=== PATIENT | female | born 1960 | race Caucasian/White ===

== ENCOUNTER 2020-02-06 08:21 | Emergency (ER) | payer BC ==
[2020-02-06] MEDS ORDERED: Sodium Chloride 0.9% 10 ML Syringe FLUSH PRN ×2 (09:35→09:45)
[2020-02-06] MEDS ORDERED: Ondansetron 4 MG/2 ML SDV IVPUSH ONE (09:35)
[2020-02-06] MEDS ORDERED: fentaNYL 100 MCG/2 ML SDV IVPUSH ONE (09:37)
[2020-02-06] MEDS ORDERED: Iopamidol 612 MG/ML 100 ML Bottle IV PRN (09:45)
[2020-02-06] MEDS ORDERED: Lactated Ringers 1,000 ML IV SCH (09:45)
--- NOTE | 2020-02-06 09:55 | EDM.PDOC ---
ED HPI GENERAL MEDICAL PROBLEM - General Chief Complaint: Abdominal Pain Stated Complaint: L LOWER ABD PAIN Time Seen by Provider: 02/06/20 09:31 Source of Information: Reports: Patient, Old Records, RN Notes Reviewed History Limitations: Reports: No Limitations - History of Present Illness INITIAL COMMENTS - FREE TEXT/NARRATIVE: 59-year-old female presents emergency department a complaint of abdominal pain, she states has had pain for about 2 days it is progressively getting worse. She was evaluated in the clinic yesterday urinalysis at that time did show positive nitrates moderate leukocyte esterase greater than 100 WBCs was started on antibiotic of Cipro.. She states the pain has gotten significantly worse over the last 12 hours. No fevers she does feel nauseated no shortness of breath or chest pain Left Lower Abdomen Pain Score (Numeric/FACES): 10 - Related Data Allergies Allergy/AdvReac Type Severity Reaction Status Date / Time ibuprofen Allergy Shortness Verified 02/06/20 09:09 of Breath *eucalyptus Allergy Severe Airway Uncoded 02/06/20 09:09 Tightness Home Meds: Home Meds Albuterol Sulfate [Proair Hfa] 2 puff IH Q4H PRN 02/28/13 [History] Ciprofloxacin [Ciprofloxacin HCl] 500 mg PO BID 02/06/20 [History] Past Medical History HEENT History: Reports: Impaired Vision, Other (See Below) Other HEENT History: top and bottom dentures Respiratory History: Reports: Asthma, Other (See Below) Other Respiratory History: emphysema 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: Musculoskeletal History: Reports: Back Pain, Chronic, Fracture, Other (See Below) Other Musculoskeletal History: left foot fx Dermatologic History: Reports: Other (See Below) Other Dermatologic History: dry skin - Infectious Disease History Infectious Disease History: Reports: Chicken Pox - Past Surgical History Female Surgical History: Reports: Tubal Ligation Social & Family History - Tobacco Use Smoking Status *Q: Light Tobacco Smoker Years of Tobacco use: 35 Packs/Tins Daily: 0.5 - Caffeine Use Caffeine Use: Reports: Coffee, Soda - Alcohol Use Days Per Week of Alcohol Use: 7 Number of Drinks Per Day: 2 Total Drinks Per Week: 14 - Recreational Drug Use Recreational Drug Use: No ED ROS GENERAL - Review of Systems Review Of Systems: See Below Constitutional: Reports: No Symptoms. Denies: Fever HEENT: Reports: No Symptoms Respiratory: Reports: No Symptoms Cardiovascular: Reports: No Symptoms GI/Abdominal: Reports: Abdominal Pain, Flatus, Nausea. Denies: Constipation, Diarrhea, Vomiting : Reports: Dysuria Musculoskeletal: Reports: No Symptoms Skin: Reports: No Symptoms ED EXAM, GI/ABD - Physical Exam Exam: See Below Exam Limited By: No Limitations General Appearance: Alert, Mild Distress Respiratory/Chest: No Respiratory Distress, Lungs Clear, Normal Breath Sounds, No Accessory Muscle Use, Chest Non-Tender Cardiovascular: Normal Peripheral Pulses, Regular Rate, Rhythm, No Murmur GI/Abdominal Exam: Soft, Tender (Left lower quadrant) Course - Vital Signs Last Recorded V/S: Last Vital Signs Temp 97.2 F 02/06/20 09:06 Pulse 95 02/06/20 10:36 Resp 14 02/06/20 10:36 BP 132/78 02/06/20 10:36 Pulse Ox 97 02/06/20 10:36 - Orders/Labs/Meds Orders: Active Orders 24 hr Category Date Time Status Peripheral IV Care [RC] . DIRECTED Care 02/06/20 09:35 Active Lactated Ringers [Ringers, Lactated] 1,000 ml Med 02/06/20 09:45 Active IV ASDIRECTED Sodium Chloride 0.9% [Saline Flush] Med 02/06/20 09:35 Active 10 ml FLUSH ASDIRECTED PRN Sodium Chloride 0.9% [Saline Flush] Med 02/06/20 09:45 Active 10 ml FLUSH ONETIME PRN ED Antiemetic Medication Reflex [OM.PC] Click to Edit Oth 02/06/20 09:35 Ordered ED Pain Medications Reflex [OM.PC] Click to Edit Oth 02/06/20 09:35 Ordered Peripheral IV Insertion Adult [OM.PC] Urgent Oth 02/06/20 09:35 Ordered Medication Orders Lactated Ringer's (Ringers, Lactated) 1,000 mls @ 999 mls/hr IV ASDIRECTED NORMA Last Admin: 02/06/20 09:44 Dose: 999 mls/hr Documented by: MICHELLEBSTA Sodium Chloride (Saline Flush) 10 ml FLUSH ASDIRECTED PRN PRN Reason: Keep Vein Open Last Admin: 02/06/20 09:44 Dose: 10 ml Documented by: MICHELLEBSTA Sodium Chloride (Saline Flush) 10 ml FLUSH ONETIME PRN PRN Reason: PER RADIOLOGY PROTOCOL Last Admin: 02/06/20 10:17 Dose: 10 ml Documented by: LAURA Labs: Laboratory Tests 02/06/20 02/06/20 02/06/20 Range/Units 09:24 09:24 09:24 WBC 15.1 H (4.5-11.0) K/uL RBC 4.06 (3.30-5.50) M/uL Hgb 15.1 H (12.0-15.0) g/dL Hct 43.4 (36.0-48.0) % MCV 107 H (80-98) fL MCH 37 H (27-31) pg MCHC 35 (32-36) % Plt Count 212 (150-400) K/uL Neut % (Auto) 87 H (36-66) % Lymph % (Auto) 5 L (24-44) % [place] % (Auto) 7 H (2-6) % Eos % (Auto) 0 L (2-4) % Baso % (Auto) 0 (0-1) % Sodium 134 L (140-148) mmol/L Potassium 3.6 (3.6-5.2) mmol/L Chloride 98 L (100-108) mmol/L Carbon Dioxide 27 (21-32) mmol/L Anion Gap 12.6 (5.0-14.0) mmol/L BUN 6 L (7-18) mg/dL Creatinine 0.9 (0.6-1.0) mg/dL Est Cr Clr Drug Dosing 51.41 mL/min Estimated GFR (MDRD) > 60 (>60) Glucose 114 H (74-106) mg/dL Lactic Acid 1.4 (0.4-2.0) mmol/L Calcium 9.3 (8.5-10.1) mg/dL Total Bilirubin 1.3 H D (0.2-1.0) mg/dL AST 67 H (15-37) U/L ALT 51 (12-78) U/L Alkaline Phosphatase 131 H (46-116) U/L Troponin I < 0.017 (0.000-0.056) ng/mL Total Protein 7.5 (6.4-8.2) g/dL Albumin 3.6 (3.4-5.0) g/dL Globulin 3.9 H (2.3-3.5) g/dL Albumin/Globulin Ratio 0.9 L (1.2-2.2) Lipase 70 L (73-393) U/L Urine Color (YELLOW) Urine Appearance (CLEAR) Urine pH (5.0-8.0) Ur Specific [place] (1.008-1.030) Urine Protein (NEGATIVE) mg/dL Urine Glucose (UA) (NEGATIVE) mg/dL Urine Ketones (NEGATIVE) mg/dL Urine Occult Blood (NEGATIVE) Urine Nitrite (NEGATIVE) Urine Bilirubin (NEGATIVE) Urine Urobilinogen (0.2-1.0) EU/dL Ur Leukocyte Esterase (NEGATIVE) Urine RBC (0-5) Urine WBC (0-5) Ur Epithelial Cells Amorphous Sediment Urine Bacteria Urine Mucus 02/06/20 Range/Units 10:10 WBC (4.5-11.0) K/uL RBC (3.30-5.50) M/uL Hgb (12.0-15.0) g/dL Hct (36.0-48.0) % MCV (80-98) fL MCH (27-31) pg MCHC (32-36) % Plt Count (150-400) K/uL Neut % (Auto) (36-66) % Lymph % (Auto) (24-44) % [place] % (Auto) (2-6) % Eos % (Auto) (2-4) % Baso % (Auto) (0-1) % Sodium (140-148) mmol/L Potassium (3.6-5.2) mmol/L Chloride (100-108) mmol/L Carbon Dioxide (21-32) mmol/L Anion Gap (5.0-14.0) mmol/L BUN (7-18) mg/dL Creatinine (0.6-1.0) mg/dL Est Cr Clr Drug Dosing mL/min Estimated GFR (MDRD) (>60) Glucose (74-106) mg/dL Lactic Acid (0.4-2.0) mmol/L Calcium (8.5-10.1) mg/dL Total Bilirubin (0.2-1.0) mg/dL AST (15-37) U/L ALT (12-78) U/L Alkaline Phosphatase (46-116) U/L Troponin I (0.000-0.056) ng/mL Total Protein (6.4-8.2) g/dL Albumin (3.4-5.0) g/dL Globulin (2.3-3.5) g/dL Albumin/Globulin Ratio (1.2-2.2) Lipase (73-393) U/L Urine Color Yellow (YELLOW) Urine Appearance Slightly cloudy A (CLEAR) Urine pH 5.5 (5.0-8.0) Ur Specific [place] 1.010 (1.008-1.030) Urine Protein Negative (NEGATIVE) mg/dL Urine Glucose (UA) Negative (NEGATIVE) mg/dL Urine Ketones Negative (NEGATIVE) mg/dL Urine Occult Blood Trace-lysed H (NEGATIVE) Urine Nitrite Negative (NEGATIVE) Urine Bilirubin Negative (NEGATIVE) Urine Urobilinogen 0.2 (0.2-1.0) EU/dL Ur Leukocyte Esterase Trace H (NEGATIVE) Urine RBC 0-5 (0-5) Urine WBC 0-5 (0-5) Ur Epithelial Cells Few Amorphous Sediment Rare Urine Bacteria Few Urine Mucus Rare Meds: Medications Generic Name Dose Route Start Last Admin Trade Name Freq PRN Reason Stop Dose Admin Lactated Ringer's 1,000 mls @ 999 mls/hr 02/06/20 09:45 02/06/20 09:44 Ringers, Lactated IV 999 mls/hr ASDIRECTED NORMA Administration Sodium Chloride 10 ml 02/06/20 09:35 02/06/20 09:44 Saline Flush FLUSH 10 ml ASDIRECTED PRN Administration Keep Vein Open Sodium Chloride 10 ml 02/06/20 09:45 02/06/20 10:17 Saline Flush FLUSH 10 ml ONETIME PRN Administration PER RADIOLOGY PROTOCOL Discontinued Medications Generic Name Dose Route Start Last Admin Trade Name Freq PRN Reason Stop Dose Admin Fentanyl 50 mcg 02/06/20 09:37 02/06/20 09:44 Sublimaze IVPUSH 02/06/20 09:38 50 mcg ONETIME ONE Administration Sodium Chloride 70 mls @ 3 mls/sec 02/06/20 09:45 02/06/20 10:17 Normal Saline IV 02/06/20 09:46 3 mls/sec ONETIME ONE Administration Iopamidol 92 ml 02/06/20 09:45 02/06/20 10:18 Isovue-300 (61%) IV 92 ml . DIRECTED PRN Administration RADIOLOGY EXAM Ondansetron HCl 4 mg 02/06/20 09:35 02/06/20 09:47 Zofran IVPUSH 02/06/20 09:36 4 mg ONETIME ONE Administration Departure - Departure Time of Disposition: 14:42 Disposition: Home, Self-Care 01 Condition: Fair Clinical Impression: Left renal mass - Discharge Information Referrals: PCP,None [Primary Care Provider] - Forms: ED Department Discharge Additional Instructions: Continue with your antibiotics already initiated, please call to the [facility] on Monday for an appointment time for an emergency room follow- up. At which time you may need to see a specialist from urology. If your symptoms get worse please return to the emergency department for further evaluation Sepsis Event Note (ED) - Evaluation Sepsis Screening Result: No Definite Risk - Focused Exam Vital Signs: Vital Signs Temp Pulse Resp BP Pulse Ox 02/06/20 10:36 95 14 132/78 97 02/06/20 09:35 99 14 124/63 100 02/06/20 09:06 97.2 F 103 H 20 132/68 100 - My Orders Last 24 Hours: My Active Orders 02/06/20 09:35 Peripheral IV Care [RC] . DIRECTED Sodium Chloride 0.9% [Saline Flush] 10 ml FLUSH ASDIRECTED PRN ED Antiemetic Medication Reflex [OM.PC] Click to Edit ED Pain Medications Reflex [OM.PC] Click to Edit Peripheral IV Insertion Adult [OM.PC] Urgent 02/06/20 09:45 Lactated Ringers [Ringers, Lactated] 1,000 ml IV ASDIRECTED Sodium Chloride 0.9% [Saline Flush] 10 ml FLUSH ONETIME PRN - Assessment/Plan Last 24 Hours: My Active Orders 02/06/20 09:35 Peripheral IV Care [RC] . DIRECTED Sodium Chloride 0.9% [Saline Flush] 10 ml FLUSH ASDIRECTED PRN ED Antiemetic Medication Reflex [OM.PC] Click to Edit ED Pain Medications Reflex [OM.PC] Click to Edit Peripheral IV Insertion Adult [OM.PC] Urgent 02/06/20 09:45 Lactated Ringers [Ringers, Lactated] 1,000 ml IV ASDIRECTED Sodium Chloride 0.9% [Saline Flush] 10 ml FLUSH ONETIME PRN Plan: Assessment Acuity = acute Site and laterality = mass left superior pole kidney Etiology = unknown Manifestations = left flank pain Location of injury = Home Lab values = WBC elevated 15.1 consistent leukocytosis total bilirubin up 1.3 consistent hyperbilirubinemia troponin is negative urinalysis negative CT scan describes a mass above ultrasound confirms however unclear if it is solid versus abscess versus solid mass with infectious process around Plan Call discussed case with Dr. Guzman interventional radiologist [place] [id number] recommend continue with antibiotic therapy and then follow-up with primary care with possible referral to urology for further evaluation of the mass, also consider MRI for better image study of the mass. A consult to follow-up with primary care has been in place for next week This note was dictated using [employer] voice recognition software please call with any questions on syntax or grammar.
[2020-02-06 10:36] VITALS: BP 132/78; PULSE 95
--- NOTE | 2020-02-06 10:46 | CT ---
Abdomen Pelvis w Cont CLINICAL HISTORY: Left lower quadrant pain COMPARISON: None. TECHNIQUE: Axial tomographic images are obtained from the dome of the diaphragm to the pubic symphysis with IV contrast enhancement. No oral contrast was used. Auto dosage reduction and iterative reconstruction techniques employed. FINDINGS: The lung bases are clear. The liver shows no mass or biliary dilatation. The gallbladder is free of filling defects. There is a fold in the midportion. The spleen has a normal size and shape. The pancreas shows no mass or inflammatory change. The adrenal glands appear normal bilaterally. There is a 2.0 x 3.0 x 1.8 cm complex low attenuation mass off the upper pole of the left kidney. There is some surrounding perinephric stranding. There is a 2 x 3 mm left mid pole nonobstructing renal calculus. The ureters have a normal course and contour. The bladder is relatively empty. The aorta there is atheromatous plaque in the aorta without aneurysm.. There is no suspicious retroperitoneal adenopathy. The small intestinal configuration is nonacute. There is gas and feces throughout the colon. The appendix is not definitively identified. Abdominal pelvic fat planes and low pelvic side belle are well demarcated. Uterus is midline. No adnexal masses or abnormal fluid collections are seen. IMPRESSION: 2.0 x 3.0 x 1.8 cm complex low-attenuation mass off the upper pole of the left kidney with surrounding inflammatory changes. This may be a complex cyst possibly with related infection. Renal ultrasound should be considered to better characterize the lesion. No evidence of diverticulitis or left lower quadrant inflammation
--- NOTE | 2020-02-06 13:33 | US ---
Abdomen Ltd CLINICAL HISTORY: Left renal abnormality, pain FINDINGS: Left kidney measures 10.5 x 4.8 x 4.6 cm. There is a 1.9 x 1.6 x 2.0 cm solid appearing mass off the upper pole of the left kidney there is no distal shadowing or significant through transmission There is no hydronephrosis. Stone seen on the current CT is not identified. IMPRESSION: 1.9 x 1.6 x 2.0 cm mass off the upper pole of the left kidney. This may represent solid mass. There is some stranding in the perinephric fat on CT. This may be of infectious etiology possibly phlegmon. Abscess is felt less likely due to lack of through transmission
== END 2020-02-06 15:09 | disposition home or self-care (01) ==
LOC: JP.ED 08:21
DX: N28.89 Other specified disorders of kidney and ureter (principal); F17.210 Nicotine dependence, cigarettes, uncomplicated; J43.9 Emphysema, unspecified; J45.909 Unspecified asthma, uncomplicated; Z88.3 Allergy status to other anti-infective agents
CPT/HCPCS: 36415; 74177; 76705; 80053; 81001; 83605; 83690; 84484; 85025; 96361; 96374; 96375; 99284; J2405; J3010; J7050; J7120; Q9967

== ENCOUNTER 2020-06-21 09:59 | Emergency (ER) | payer BC ==
[2020-06-21 10:17] VITALS: BP 150/77; PULSE 91
[2020-06-21] MEDS ORDERED: Acetaminophen 325 MG Tab PO ONE (10:36)
[2020-06-21] MEDS ORDERED: Cyclobenzaprine 10 MG Tab PO ONE (10:36)
--- NOTE | 2020-06-21 10:36 | EDM.PDOC ---
ED HPI GENERAL MEDICAL PROBLEM - General Chief Complaint: General Stated Complaint: CHEST PAIN Time Seen by Provider: 06/21/20 10:08 Source of Information: Reports: Patient, Family, RN Notes Reviewed History Limitations: Reports: No Limitations - History of Present Illness INITIAL COMMENTS - FREE TEXT/NARRATIVE: 59-year-old female presents emergency department with a complaint of chest pain, she is got chest pain left side of her chest in the axilla down into the left arm been going on for about a week it does come and go she does feel short of breath when the pain is so intense otherwise no nausea vomiting no diaphoresis. She did have some trauma about a week ago where she fell landed predominantly on her right side Left Chest Pain Score (Numeric/FACES): 7 - Related Data Allergies Allergy/AdvReac Type Severity Reaction Status Date / Time ibuprofen Allergy Shortness Verified 06/21/20 10:17 of Breath *eucalyptus Allergy Severe Airway Uncoded 06/21/20 10:17 Tightness Home Meds: Home Meds Albuterol Sulfate [Proair Hfa] 2 puff IH Q4H PRN 02/28/13 [History] Fluticasone/Vilanterol [Breo Ellipta 100-25 MCG Inhalation Kit] 1 each IH DAILY PRN 06/21/20 [History] Past Medical History HEENT History: Reports: Impaired Vision, Other (See Below) Other HEENT History: top and bottom dentures Cardiovascular History: Reports: Other (See Below) Other Cardiovascular History: complete cardiac work up August 2019. All negative. 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: Musculoskeletal History: Reports: Back Pain, Chronic, Fracture, Other (See Below) Other Musculoskeletal History: left foot fx Dermatologic History: Reports: Other (See Below) Other Dermatologic History: dry skin - Infectious Disease History Infectious Disease History: Reports: Chicken Pox - Past Surgical History Female Surgical History: Reports: Tubal Ligation Musculoskeletal Surgical History: Reports: Other (See Below) Other Musculoskeletal Surgeries/Procedures:: surgical repair of left foot fx Social & Family History - Tobacco Use Tobacco Use Status *Q: Current Every Day Tobacco User Years of Tobacco use: 30 Packs/Tins Daily: 0.5 Used Tobacco, but Quit: No Second Hand Smoke Exposure: Yes - Caffeine Use Caffeine Use: Reports: Coffee, Soda - Alcohol Use Days Per Week of Alcohol Use: 7 Number of Drinks Per Day: 2 Total Drinks Per Week: 14 - Recreational Drug Use Recreational Drug Use: No ED ROS GENERAL - Review of Systems Review Of Systems: See Below Constitutional: Reports: No Symptoms. Denies: Diaphoresis Respiratory: Reports: Shortness of Breath Cardiovascular: Reports: Chest Pain GI/Abdominal: Denies: Nausea, Vomiting Musculoskeletal: Reports: Shoulder Pain ED EXAM, GENERAL - Physical Exam Exam: See Below Exam Limited By: No Limitations General Appearance: Alert, WD/WN, No Apparent Distress Respiratory/Chest: No Respiratory Distress, Lungs Clear, Normal Breath Sounds, No Accessory Muscle Use, Other (Tenderness to palpation left side of the chest) Cardiovascular: Regular Rate, Rhythm, No Murmur GI/Abdominal: Soft, Non-Tender Extremities: No Pedal Edema Course - Vital Signs Last Recorded V/S: Last Vital Signs Temp 96 F L 06/21/20 10:15 Pulse 91 06/21/20 10:15 Resp 15 06/21/20 10:15 BP 150/77 H 06/21/20 10:15 Pulse Ox 98 06/21/20 10:15 - Orders/Labs/Meds Orders: Active Orders 24 hr Category Date Time Status Cardiac Monitoring [RC] .As Directed Care 06/21/20 10:34 Active Chest 1V Frontal [CR] Stat Exams 06/21/20 10:34 Taken EKG 12 Lead [EK] Stat Ther 06/21/20 10:34 Ordered Labs: Laboratory Tests 06/21/20 06/21/20 Range/Units 10:53 10:53 WBC 7.8 (4.5-11.0) K/uL RBC 4.02 (3.30-5.50) M/uL Hgb 15.1 H (12.0-15.0) g/dL Hct 43.6 (36.0-48.0) % MCV 109 H (80-98) fL MCH 38 H (27-31) pg MCHC 35 (32-36) % Plt Count 191 (150-400) K/uL Neut % (Auto) 69 H (36-66) % Lymph % (Auto) 18 L (24-44) % [place] % (Auto) 11 H (2-6) % Eos % (Auto) 1 L (2-4) % Baso % (Auto) 0 (0-1) % Sodium 139 L (140-148) mmol/L Potassium 4.0 (3.6-5.2) mmol/L Chloride 102 (100-108) mmol/L Carbon Dioxide 26 (21-32) mmol/L Anion Gap 15.0 H (5.0-14.0) mmol/L BUN 6 L (7-18) mg/dL Creatinine 0.8 (0.6-1.0) mg/dL Est Cr Clr Drug Dosing 57.84 mL/min Estimated GFR (MDRD) > 60 (>60) Glucose 94 (74-106) mg/dL Calcium 8.9 (8.5-10.1) mg/dL Troponin I < 0.017 (0.000-0.056) ng/mL Meds: Medications Discontinued Medications Generic Name Dose Route Start Last Admin Trade Name Freq PRN Reason Stop Dose Admin Acetaminophen 650 mg 06/21/20 10:36 06/21/20 10:53 Tylenol PO 06/21/20 10:37 650 mg NOW ONE Administration Cyclobenzaprine HCl 10 mg 06/21/20 10:36 06/21/20 10:53 Flexeril PO 06/21/20 10:37 10 mg ONETIME ONE Administration Departure - Departure Time of Disposition: 11:36 Disposition: Home, Self-Care 01 Condition: Fair Clinical Impression: Chest wall pain - Discharge Information Instructions: Nonspecific Chest Pain, Adult Referrals: Karen James DO [Primary Care Provider] - Forms: ED Department Discharge Additional Instructions: Continue to use Tylenol as needed for pain control try the muscle relaxant as needed for muscle spasms, please followup with your primary care provider in 3- 5 days if not better, please call return to the emergency department with worsening of symptoms. Sepsis Event Note (ED) - Evaluation Sepsis Screening Result: No Definite Risk - Focused Exam Vital Signs: Vital Signs Temp Pulse Resp BP Pulse Ox 06/21/20 10:15 96 F L 91 15 150/77 H 98 - My Orders Last 24 Hours: My Active Orders 06/21/20 10:34 Cardiac Monitoring [RC] .As Directed Chest 1V Frontal [CR] Stat EKG 12 Lead [EK] Stat - Assessment/Plan Last 24 Hours: My Active Orders 06/21/20 10:34 Cardiac Monitoring [RC] .As Directed Chest 1V Frontal [CR] Stat EKG 12 Lead [EK] Stat Plan: Assessment Acuity = acute Site and laterality = chest wall pain Etiology = probably related to recent injury Manifestations = none Location of injury = Home Lab values = CBC, BMP, troponin all within normal limits, chest x-ray reveals no acute process Plan She had good improvement with Tylenol Flexeril discharge home Flexeril 10 mg p.o. 3 times daily as needed, #15 follow-up primary care 3 to 5 days if not better This note was dictated using [employer] voice recognition software please call with any questions on syntax or grammar.
--- NOTE | 2020-06-22 10:07 | CR ---
CHEST: Portable 06/21/2020 at 10:58 AM CLINICAL HISTORY:Chest pain COMPARISON:2018 FINDINGS: The heart size, pulmonary vascularity and hilar structures are normal. No infiltrate effusion or pneumothorax is seen. IMPRESSION: No acute cardiopulmonary process.
== END 2020-06-21 11:42 | disposition home or self-care (01) ==
LOC: JP.ED 09:59
DX: R07.89 Other chest pain (principal); J45.909 Unspecified asthma, uncomplicated; Z72.0 Tobacco use; Z88.6 Allergy status to analgesic agent; Z88.8 Allergy status to other drugs, medicaments and biological substances
CPT/HCPCS: 36415; 71045; 80048; 84484; 85025; 93005; 93010; 99285; A9270; 99283

== ENCOUNTER 2021-12-27 21:06 | Emergency (ER) | payer BC ==
[2021-12-27 21:56] VITALS: BP 137/78; PULSE 99
[2021-12-27] MEDS ORDERED: HYDROmorphone 0.5 MG/0.5 ML Syringe IM ONE (22:54)
== END 2021-12-27 23:22 | disposition home or self-care (01) ==
LOC: JP.ED 21:06
DX: S42.032A Displaced fracture of lateral end of left clavicle, initial encounter for closed fracture (principal); F17.210 Nicotine dependence, cigarettes, uncomplicated; Z88.8 Allergy status to other drugs, medicaments and biological substances; Z86.16 Personal history of COVID-19; W18.30XA Fall on same level, unspecified, initial encounter
CPT/HCPCS: 73010; 73030; 96372; 99283; J1170; 99281